=== PATIENT | male | born 1960 | race Caucasian/White ===

== ENCOUNTER 2017-07-27 06:59 | Inpatient (IN) ==
[2017-07-27] MEDS ORDERED: ONDANSETRON 4 MG/2 ML VIAL IV PRN (08:56)
[2017-07-27] MEDS ORDERED: PROMETHAZINE INJ 25 MG in SODIUM CHLORIDE 0.9% 50 ML IV PRN (08:56)
[2017-07-27] MEDS ORDERED: MYLANTA/LIDO VISC 2:1 300 ML BOTTLE SWISH/SWAL PRN (08:56)
[2017-07-27] MEDS ORDERED: ALPRAZolam 0.25 MG TABLET PO PRN (08:56)
[2017-07-27] MEDS ORDERED: TEMAZEPAM 7.5 MG CAPSULE PO PRN (08:56)
[2017-07-27] MEDS ORDERED: guaiFENesin 200 MG/10 ML UDCUP PO PRN (08:56)
[2017-07-27] MEDS ORDERED: diphenhydrAMINE CAP 25 MG CAPSULE PO PRN (08:56)
[2017-07-27] MEDS ORDERED: LOPERAMIDE 2 MG CAPSULE PO PRN ×2 (08:56)
[2017-07-27] MEDS ORDERED: chlorproMAZINE INJ 50 MG in SODIUM CHLORIDE 0.9% 100 ML IV PRN (08:56)
[2017-07-27] MEDS ORDERED: ACETAMINOPHEN 325 MG TABLET PO PRN (08:56)
[2017-07-27] MEDS ORDERED: chlorproMAZINE 25 MG TABLET PO PRN (08:56)
[2017-07-27] MEDS ORDERED: traMADol 50 MG TABLET PO PRN (08:56)
[2017-07-27] MEDS ORDERED: BENZTROPINE 2 MG/2 ML AMP IV PRN (08:56)
[2017-07-27] MEDS ORDERED: MYLANTA/LIDO VISC 2:1 300 ML BOTTLE SWISH/SPIT PRN (08:56)
[2017-07-27] MEDS ORDERED: chlorproMAZINE INJ 25 MG in SODIUM CHLORIDE 0.9% 100 ML IV PRN (08:56)
[2017-07-27] MEDS ORDERED: NICOTINE 14 MG/24 HR PATCH TRANSDERM SCH (09:00)
[2017-07-27] MEDS ORDERED: fentaNYL 50 MCG/HR PATCH TRANSDERM SCH (09:30)
[2017-07-27 09:40] LABS: Basophils # 0.1 10*3/uL (0.0-0.2); Basophils % 0.7 % (0.0-0.8); Eosinophils % 0.1 % (0.00-10.9); Hematocrit 42.7 VOL% (42.0-52.0); Hemoglobin 13.7 GM/DL (14.0-18.0); Immature Granulocytes Absolute 1.33 #; Lymphocytes # 2.7 10*3/uL (1.4-4.0); Lymphocytes % 14.3 % (21.2-54.2); Mean Corpuscular HGB Conc 32.1 GM/DL (32-36); Mean Corpuscular Hemoglobin 29 PG (27-34); Mean Platelet Volume 10.7 FL (9.6-12.0); Monocytes # 1.2 10*3/uL (0.11-0.8); Monocytes % 6.5 % (1.7-12.7); NRBC # 0.06 10*3/uL; Neutrophils # 13.6 10*3/uL (1.4-7.4); Neutrophils % 71.4 % (38.7-73.9); Platelet Count 223 T/CUMM (130-400); Red Blood Count 4.69 MC/CUMM (3.8-5.5); Red Cell Distribution Width 14.6 % (9.3-17.3)
[2017-07-27] MEDS: BENAZEPRIL 10 MG TABLET PO SCH (10:06)
[2017-07-27] MEDS: ATORVASTATIN 40 MG TABLET PO SCH (10:06)
[2017-07-27] MEDS: ESCITALOPRAM 10 MG TABLET PO SCH (10:06)
[2017-07-27] MEDS: amLODIPine 5 MG TABLET PO SCH (10:07)
[2017-07-27] MEDS: GABAPENTIN 100 MG CAPSULE PO SCH ×3 (10:07→20:53)
[2017-07-27 10:10] LABS: Albumin 3.3 G/DL (3.4-5.0); Bilirubin,Total 0.7 MG/DL (0.2-1.0); Calcium 8.6 MG/DL (8.5-10.1); Osmolality,Calculated 277.5 MOS/KG (273-304); Total Protein 6.9 G/DL (6.4-8.3)
[2017-07-27 10:11] LABS: Potassium 4.3 MMOL/L (3.5-5.1)
[2017-07-27] MEDS: ALLOPURINOL 300 MG TABLET PO SCH (10:11)
[2017-07-27] MEDS: ALUMINUM/MAGNES/SIMETH MAX STR 30 ML UDCUP PO PRN (10:12)
[2017-07-27 10:23] LABS: Uric Acid 7.7 MG/DL (3.5-7.2)
[2017-07-27 10:54] LABS: Band Neutrophils 2 % (0-10); Lymphocytes 18 % (20-55); Polychromasia Few; Segmented Neutrophils 78 % (50-85); Total Cells Counted 100
[2017-07-27 10:55] LABS: Platelet Estimate Normal
[2017-07-27] MEDS: DIAZEPAM 5 MG TABLET PO SCH ×4 (13:49→20:54)
[2017-07-27] MEDS: HYDROmorphone 2 MG/1 ML VIAL IV PRN ×2 (15:16→20:50)
[2017-07-27] MEDS: SODIUM BICARB INJ 100 MEQ in DEXTROSE 5% 1,000 ML IV SCH (16:43)
[2017-07-27] MEDS: tiZANidine 4 MG TABLET PO SCH ×3 (16:44→20:54)
[2017-07-27 17:43] LABS: Apearance,Urine CLEAR (Clear); Bilirubin,Urine Negative (Negative); Blood, Urine Negative (Negative); Glucose,Urine (UA) Negative (Negative); Ketones,Urine Negative (Negative); Mucus,Urine Occasional /LPF (Occasional); Nitrite,Urine Negative (Negative); Protein,Urine 30 MG/DL; RBC,Urine 1 /HPF (0-4); Squamous Epithelial Cell,Urine Occasional /HPF (0-10); Urine Color Yellow (Yellow); Urine Specific Gravity 1.023 (1.001-1.035); WBC,Urine 2 /HPF (0-6)
[2017-07-27] MEDS: ZALEPLON 5 MG CAPSULE PO SCH ×2 (20:35→20:54)
[2017-07-28] MEDS: SODIUM BICARB INJ 100 MEQ in DEXTROSE 5% 1,000 ML IV SCH ×3 (00:50→17:55)
[2017-07-28 05:12] LABS: Basophils # 0.2 10*3/uL (0.0-0.2); Basophils % 0.8 % (0.0-0.8); Eosinophils # 0.1 10*3/uL (0.0-0.87); Eosinophils % 0.3 % (0.00-10.9); Hematocrit 41.1 VOL% (42.0-52.0); Hemoglobin 13.1 GM/DL (14.0-18.0); Immature Granulocytes % 7.4 %; Immature Granulocytes Absolute 1.32 #; Lymphocytes # 2.5 10*3/uL (1.4-4.0); Lymphocytes % 14.2 % (21.2-54.2); Mean Corpuscular HGB Conc 31.9 GM/DL (32-36); Mean Corpuscular Hemoglobin 29 PG (27-34); Mean Corpuscular Volume 91.9 FL (87-102); Monocytes # 1.2 10*3/uL (0.11-0.8); Monocytes % 6.6 % (1.7-12.7); NRBC # 0.08 10*3/uL; Neutrophils # 12.6 10*3/uL (1.4-7.4); Neutrophils % 70.7 % (38.7-73.9); Platelet Count 202 T/CUMM (130-400); Red Blood Count 4.47 MC/CUMM (3.8-5.5); Red Cell Distribution Width 14.6 % (9.3-17.3); White Blood Count 17.8 T/CUMM (4-12)
[2017-07-28] MEDS: HYDROmorphone 2 MG/1 ML VIAL IV PRN ×3 (05:31→21:35)
[2017-07-28 05:40] LABS: Bilirubin,Total 1.1 MG/DL (0.2-1.0); Calcium 7.9 MG/DL (8.5-10.1); Osmolality,Calculated 270.1 MOS/KG (273-304); Total Protein 6.5 G/DL (6.4-8.3); Uric Acid 5.8 MG/DL (3.5-7.2)
[2017-07-28 05:46] LABS: Lymphocytes 13 % (20-55); Platelet Estimate Adequate; Segmented Neutrophils 81 % (50-85); Total Cells Counted 100
[2017-07-28 05:47] LABS: Polychromasia Few; Target Cells Slight
[2017-07-28] MEDS: ALUMINUM/MAGNES/SIMETH MAX STR 30 ML UDCUP PO PRN (06:43)
[2017-07-28] MEDS: BENAZEPRIL 10 MG TABLET PO SCH (09:30)
[2017-07-28] MEDS: ALLOPURINOL 300 MG TABLET PO SCH (09:31)
[2017-07-28] MEDS: amLODIPine 5 MG TABLET PO SCH (09:31)
[2017-07-28] MEDS: NICOTINE 21 MG/24 HR PATCH TRANSDERM SCH (09:32)
[2017-07-28] MEDS: ESCITALOPRAM 10 MG TABLET PO SCH (09:38)
[2017-07-28] MEDS: GABAPENTIN 100 MG CAPSULE PO SCH ×2 (09:38→21:37)
[2017-07-28] MEDS: tiZANidine 4 MG TABLET PO SCH ×3 (09:38→21:38)
[2017-07-28] MEDS ORDERED: DIBUCAINE 1% OINT 28 GM TUBE TOP ONE (10:02)
[2017-07-28] MEDS ORDERED: LIDOCAINE 1%/EPI INJ 20 ML VIAL ONE (10:03)
[2017-07-28] MEDS: GRANISETRON 1 MG/1 ML VIAL IV SCH (10:03)
[2017-07-28] MEDS ORDERED: BUPIVACAINE 0.25% 50 ML VIAL ONE (10:03)
[2017-07-28] MEDS: DEXAMETHASONE 10 MG/1 ML VIAL IV SCH (10:04)
[2017-07-28] MEDS: ETOPOSIDE 160 MG in SODIUM CHLORIDE 0.9% 500 ML IV SCH (10:28)
[2017-07-28] MEDS: ATORVASTATIN 40 MG TABLET PO SCH ×2 (11:07→23:14)
[2017-07-28] MEDS: MAGNESIUM HYDROXIDE SUSP 30 ML UDCUP PO PRN (17:58)
[2017-07-28] MEDS: ZALEPLON 5 MG CAPSULE PO SCH (21:38)
[2017-07-29] MEDS: SODIUM BICARB INJ 100 MEQ in DEXTROSE 5% 1,000 ML IV SCH ×2 (02:19→14:27)
[2017-07-29] MEDS: ALUMINUM/MAGNES/SIMETH MAX STR 30 ML UDCUP PO PRN ×3 (03:30→20:04)
[2017-07-29] MEDS: HYDROmorphone 2 MG/1 ML VIAL IV PRN ×3 (03:31→17:27)
[2017-07-29 05:29] LABS: Basophils # 0.1 10*3/uL (0.0-0.2); Basophils % 0.3 % (0.0-0.8); Hematocrit 41.5 VOL% (42.0-52.0); Hemoglobin 13.2 GM/DL (14.0-18.0); Immature Granulocytes % 4.8 %; Lymphocytes % 9.5 % (21.2-54.2); Mean Corpuscular HGB Conc 31.8 GM/DL (32-36); Mean Corpuscular Hemoglobin 30 PG (27-34); Mean Corpuscular Volume 92.8 FL (87-102); Mean Platelet Volume 10.9 FL (9.6-12.0); Monocytes # 1.2 10*3/uL (0.11-0.8); Monocytes % 5.8 % (1.7-12.7); NRBC # 0.04 10*3/uL; Neutrophils # 16.5 10*3/uL (1.4-7.4); Neutrophils % 79.6 % (38.7-73.9); Platelet Count 196 T/CUMM (130-400); Red Blood Count 4.47 MC/CUMM (3.8-5.5); Red Cell Distribution Width 14.5 % (9.3-17.3); White Blood Count 20.7 T/CUMM (4-12)
[2017-07-29 06:07] LABS: Albumin 3.1 G/DL (3.4-5.0); Bilirubin,Total 0.6 MG/DL (0.2-1.0); Calcium 7.7 MG/DL (8.5-10.1); Osmolality,Calculated 266.7 MOS/KG (273-304); Potassium 4.2 MMOL/L (3.5-5.1); Total Protein 6.7 G/DL (6.4-8.3); Uric Acid 5.7 MG/DL (3.5-7.2)
[2017-07-29 06:09] LABS: Band Neutrophils 5 % (0-10); Lymphocytes 12 % (20-55); Platelet Estimate Adequate; Segmented Neutrophils 76 % (50-85); Total Cells Counted 100
[2017-07-29 06:10] LABS: Giant Platelets Few; Hypochromasia 1+
[2017-07-29] MEDS: amLODIPine 5 MG TABLET PO SCH (08:55)
[2017-07-29] MEDS: BENAZEPRIL 10 MG TABLET PO SCH (08:55)
[2017-07-29] MEDS: ALLOPURINOL 300 MG TABLET PO SCH (08:55)
[2017-07-29] MEDS: NICOTINE 21 MG/24 HR PATCH TRANSDERM SCH (08:57)
[2017-07-29] MEDS: ESCITALOPRAM 10 MG TABLET PO SCH (09:01)
[2017-07-29] MEDS: GABAPENTIN 100 MG CAPSULE PO SCH ×2 (09:02→21:05)
[2017-07-29] MEDS: tiZANidine 4 MG TABLET PO SCH ×3 (09:02→21:06)
[2017-07-29] MEDS ORDERED: SODIUM CHLORIDE 0.9% IV ONE (09:30)
[2017-07-29] MEDS ORDERED: CARBOPLATIN IV ONE (09:30)
[2017-07-29] MEDS: DEXAMETHASONE 10 MG/1 ML VIAL IV SCH (09:45)
[2017-07-29] MEDS: GRANISETRON 1 MG/1 ML VIAL IV SCH (09:45)
[2017-07-29] MEDS: ETOPOSIDE 160 MG in SODIUM CHLORIDE 0.9% 500 ML IV SCH (10:31)
[2017-07-29] MEDS: MAGNESIUM HYDROXIDE SUSP 30 ML UDCUP PO PRN (17:34)
[2017-07-29] MEDS: ATORVASTATIN 40 MG TABLET PO SCH (21:05)
[2017-07-29] MEDS: ZALEPLON 5 MG CAPSULE PO SCH (21:05)
[2017-07-30] MEDS: HYDROmorphone 2 MG/1 ML VIAL IV PRN ×4 (01:24→21:23)
[2017-07-30] MEDS: SODIUM BICARB INJ 100 MEQ in DEXTROSE 5% 1,000 ML IV SCH ×2 (01:25→05:46)
[2017-07-30] MEDS: LACTULOSE 20 GM/30 ML UDCUP PO PRN (01:33)
[2017-07-30 04:21] LABS: Basophils % 0.2 % (0.0-0.8); Hematocrit 40.7 VOL% (42.0-52.0); Hemoglobin 12.8 GM/DL (14.0-18.0); Immature Granulocytes % 4.5 %; Lymphocytes # 1.4 10*3/uL (1.4-4.0); Lymphocytes % 7.9 % (21.2-54.2); Mean Corpuscular HGB Conc 31.4 GM/DL (32-36); Mean Corpuscular Hemoglobin 29 PG (27-34); Mean Corpuscular Volume 93.3 FL (87-102); Monocytes # 0.9 10*3/uL (0.11-0.8); Monocytes % 4.9 % (1.7-12.7); NRBC # 0.03 10*3/uL; Neutrophils # 14.7 10*3/uL (1.4-7.4); Neutrophils % 82.5 % (38.7-73.9); Platelet Count 182 T/CUMM (130-400); Red Blood Count 4.36 MC/CUMM (3.8-5.5); Red Cell Distribution Width 14.6 % (9.3-17.3); White Blood Count 17.8 T/CUMM (4-12)
[2017-07-30 05:10] LABS: Bilirubin,Total 0.4 MG/DL (0.2-1.0); Calcium 7.1 MG/DL (8.5-10.1); Osmolality,Calculated 265.5 MOS/KG (273-304); Potassium 4.5 MMOL/L (3.5-5.1); Total Protein 6.3 G/DL (6.4-8.3); Uric Acid 5.1 MG/DL (3.5-7.2)
[2017-07-30 05:37] LABS: Giant Platelets Few; Hypochromasia 1+; Platelet Estimate Normal
[2017-07-30] MEDS ORDERED: fentaNYL 75 MCG/HR PATCH TRANSDERM SCH (09:00)
[2017-07-30] MEDS: ALUMINUM/MAGNES/SIMETH MAX STR 30 ML UDCUP PO PRN (09:17)
[2017-07-30] MEDS: DEXAMETHASONE 10 MG/1 ML VIAL IV SCH (09:18)
[2017-07-30] MEDS: GRANISETRON 1 MG/1 ML VIAL IV SCH (09:18)
[2017-07-30] MEDS: amLODIPine 5 MG TABLET PO SCH (09:20)
[2017-07-30] MEDS: tiZANidine 4 MG TABLET PO SCH ×3 (09:20→23:01)
[2017-07-30] MEDS: ALLOPURINOL 300 MG TABLET PO SCH (09:20)
[2017-07-30] MEDS: NICOTINE 21 MG/24 HR PATCH TRANSDERM SCH (09:20)
[2017-07-30] MEDS: BENAZEPRIL 10 MG TABLET PO SCH (09:20)
[2017-07-30] MEDS: ESCITALOPRAM 10 MG TABLET PO SCH (09:20)
[2017-07-30] MEDS: GABAPENTIN 100 MG CAPSULE PO SCH ×2 (09:20→23:00)
[2017-07-30] MEDS ORDERED: ALUMINUM/MAGNES/SIMETH MAX STR 30 ML UDCUP PO PRN (09:23)
[2017-07-30] MEDS: ETOPOSIDE 160 MG in SODIUM CHLORIDE 0.9% 500 ML IV SCH (11:55)
[2017-07-30] MEDS: ALBUTEROL/IPRATROPIUM 3 ML NEB RESP TX SCH ×2 (14:00→19:25)
[2017-07-30 17:16] LABS: II 29.2 % (30.4-36.4); III 24.4 % (19.2-24.8); IV 13.5 % (9.6-15.6)
[2017-07-30] MEDS: ATORVASTATIN 40 MG TABLET PO SCH (21:23)
[2017-07-30] MEDS: MAGNESIUM HYDROXIDE SUSP 30 ML UDCUP PO PRN (21:33)
[2017-07-30] MEDS: CALCIUM (CARBONATE)/VITAMIN D 600 MG-400 UNIT TABLET PO SCH (23:00)
[2017-07-30] MEDS: ZALEPLON 5 MG CAPSULE PO SCH (23:01)
[2017-07-31] MEDS: ALBUTEROL/IPRATROPIUM 3 ML NEB RESP TX SCH ×4 (00:22→20:31)
[2017-07-31] MEDS: SODIUM BICARB INJ 100 MEQ in DEXTROSE 5% 1,000 ML IV SCH ×2 (04:06→11:16)
[2017-07-31] MEDS: HYDROmorphone 2 MG/1 ML VIAL IV PRN ×2 (05:03→10:07)
[2017-07-31 07:13] LABS: Basophils % 0.1 % (0.0-0.8); Hematocrit 37.8 VOL% (42.0-52.0); Immature Granulocytes % 1.5 %; Immature Granulocytes Absolute 0.22 #; Lymphocytes # 1.6 10*3/uL (1.4-4.0); Lymphocytes % 10.9 % (21.2-54.2); Mean Corpuscular HGB Conc 31.7 GM/DL (32-36); Mean Corpuscular Hemoglobin 30 PG (27-34); Mean Corpuscular Volume 93.3 FL (87-102); Mean Platelet Volume 10.9 FL (9.6-12.0); Monocytes # 0.4 10*3/uL (0.11-0.8); Monocytes % 3.1 % (1.7-12.7); Neutrophils # 12.1 10*3/uL (1.4-7.4); Neutrophils % 84.4 % (38.7-73.9); Platelet Count 181 T/CUMM (130-400); Red Blood Count 4.05 MC/CUMM (3.8-5.5); Red Cell Distribution Width 14.7 % (9.3-17.3); White Blood Count 14.4 T/CUMM (4-12)
[2017-07-31 07:54] LABS: Albumin 2.8 G/DL (3.4-5.0); Bilirubin,Total 0.5 MG/DL (0.2-1.0); Calcium 6.5 MG/DL (8.5-10.1); Osmolality,Calculated 271.4 MOS/KG (273-304); Potassium 4.6 MMOL/L (3.5-5.1); Total Protein 6.1 G/DL (6.4-8.3)
[2017-07-31] MEDS ORDERED: FUROSEMIDE 40 MG/4 ML VIAL IV ONE (10:00)
[2017-07-31] MEDS ORDERED: MORPHINE 4 MG/1 ML VIAL IV PRN (10:02)
[2017-07-31] MEDS: ALUMINUM/MAGNES/SIMETH MAX STR 30 ML UDCUP PO PRN (10:07)
[2017-07-31] MEDS: NICOTINE 21 MG/24 HR PATCH TRANSDERM SCH (10:08)
[2017-07-31] MEDS: BENAZEPRIL 10 MG TABLET PO SCH (10:08)
[2017-07-31] MEDS: ALLOPURINOL 300 MG TABLET PO SCH (10:08)
[2017-07-31] MEDS: amLODIPine 5 MG TABLET PO SCH (10:08)
[2017-07-31] MEDS: CALCIUM (CARBONATE)/VITAMIN D 600 MG-400 UNIT TABLET PO SCH ×2 (10:08→20:42)
[2017-07-31] MEDS: ESCITALOPRAM 10 MG TABLET PO SCH (10:17)
[2017-07-31] MEDS: GABAPENTIN 100 MG CAPSULE PO SCH ×2 (10:17→21:01)
[2017-07-31] MEDS: tiZANidine 4 MG TABLET PO SCH ×3 (10:19→21:02)
[2017-07-31] MEDS ORDERED: CALCIUM GLUCONATE 1,000 MG in SODIUM CHLORIDE 0.9% 100 ML IV ONE (11:00)
[2017-07-31] MEDS: INSULIN REGULAR 100 UNIT/ML SUBCUT SCH ×3 (11:10→20:46)
[2017-07-31] MEDS: HYDROmorphone 2 MG TABLET PO PRN ×3 (11:40→21:37)
[2017-07-31] MEDS ORDERED: fentaNYL 100 MCG/HR PATCH TRANSDERM SCH (16:30)
[2017-07-31] MEDS: LACTULOSE 20 GM/30 ML UDCUP PO PRN (17:16)
[2017-07-31] MEDS ORDERED: SIMETHICONE CHEW 125 MG TABLET PO PRN (19:49)
[2017-07-31] MEDS ORDERED: SIMETHICONE CHEW 125 MG TABLET PO SCH (20:00)
[2017-07-31] MEDS: ATORVASTATIN 40 MG TABLET PO SCH (20:42)
[2017-07-31] MEDS: ZALEPLON 5 MG CAPSULE PO SCH (21:01)
[2017-08-01] MEDS: ALBUTEROL/IPRATROPIUM 3 ML NEB RESP TX SCH ×2 (01:26→07:09)
[2017-08-01] MEDS: HYDROmorphone 2 MG TABLET PO PRN ×3 (01:31→09:46)
[2017-08-01 04:14] VITALS: BP 117/58
[2017-08-01 05:12] LABS: Basophils % 0.2 % (0.0-0.8); Hematocrit 38.5 VOL% (42.0-52.0); Hemoglobin 12.4 GM/DL (14.0-18.0); Immature Granulocytes % 0.7 %; Immature Granulocytes Absolute 0.09 #; Lymphocytes # 1.9 10*3/uL (1.4-4.0); Lymphocytes % 14.3 % (21.2-54.2); Mean Corpuscular HGB Conc 32.2 GM/DL (32-36); Mean Corpuscular Hemoglobin 30 PG (27-34); Mean Corpuscular Volume 91.4 FL (87-102); Mean Platelet Volume 10.8 FL (9.6-12.0); Monocytes # 0.3 10*3/uL (0.11-0.8); Monocytes % 2.1 % (1.7-12.7); Neutrophils # 10.7 10*3/uL (1.4-7.4); Neutrophils % 82.7 % (38.7-73.9); Platelet Count 161 T/CUMM (130-400); Red Blood Count 4.21 MC/CUMM (3.8-5.5); Red Cell Distribution Width 14.6 % (9.3-17.3); White Blood Count 12.9 T/CUMM (4-12)
[2017-08-01 05:53] LABS: Bilirubin,Total 0.7 MG/DL (0.2-1.0); Calcium 7.9 MG/DL (8.5-10.1); Osmolality,Calculated 260.1 MOS/KG (273-304); Potassium 5.3 MMOL/L (3.5-5.1); Total Protein 6.3 G/DL (6.4-8.3); Uric Acid 6.2 MG/DL (3.5-7.2)
[2017-08-01] MEDS: INSULIN REGULAR 100 UNIT/ML SUBCUT SCH (09:33)
[2017-08-01] MEDS: tiZANidine 4 MG TABLET PO SCH (09:34)
[2017-08-01] MEDS: ESCITALOPRAM 10 MG TABLET PO SCH (09:35)
[2017-08-01] MEDS: ALLOPURINOL 300 MG TABLET PO SCH (09:39)
[2017-08-01] MEDS: BENAZEPRIL 10 MG TABLET PO SCH (09:39)
[2017-08-01] MEDS: CALCIUM (CARBONATE)/VITAMIN D 600 MG-400 UNIT TABLET PO SCH (09:39)
[2017-08-01] MEDS: NICOTINE 21 MG/24 HR PATCH TRANSDERM SCH (09:40)
[2017-08-01] MEDS: amLODIPine 5 MG TABLET PO SCH (09:40)
[2017-08-01] MEDS: GABAPENTIN 100 MG CAPSULE PO SCH (09:47)
== END 2017-08-01 11:25 | disposition home or self-care (01) | DRG 847 ==
LOC: N.4E 06:59
PROVIDERS: ADMIT Specialist; ATTEND Specialist

== ENCOUNTER 2017-09-11 00:36 | Inpatient (IN) ==
[2017-09-11] MEDS ORDERED: ROCURONIUM 100 MG/10 ML VIAL IV ONE ×2 (00:54→01:10)
[2017-09-11] MEDS ORDERED: ETOMIDATE 20 MG/10 ML VIAL IV ONE ×2 (00:54→01:10)
[2017-09-11] MEDS ORDERED: SODIUM CHLORIDE 0.9% 1,000 ML IV STA (01:08)
[2017-09-11] MEDS ORDERED: VANCOMYCIN INJ 1,000 MG in SODIUM CHLORIDE 0.9% 250 ML IV STA (01:29)
[2017-09-11] MEDS ORDERED: CEFEPIME 2,000 MG in SODIUM CHLORIDE 0.9% 100 ML IV STA (01:29)
[2017-09-11 01:37] LABS: Basophils % 0.2 % (0.0-0.8); Eosinophils % 0.1 % (0.00-10.9); Hematocrit 36.1 VOL% (42.0-52.0); Hemoglobin 11.5 GM/DL (14.0-18.0); Immature Granulocytes % 2.6 %; Immature Granulocytes Absolute 0.37 #; Lymphocytes # 1.8 10*3/uL (1.4-4.0); Lymphocytes % 12.4 % (21.2-54.2); Mean Corpuscular HGB Conc 31.9 GM/DL (32-36); Mean Corpuscular Hemoglobin 29 PG (27-34); Mean Corpuscular Volume 92.3 FL (87-102); Mean Platelet Volume 9.7 FL (9.6-12.0); Monocytes # 0.3 10*3/uL (0.11-0.8); Monocytes % 2.4 % (1.7-12.7); NRBC # 0.02 10*3/uL; Neutrophils # 11.9 10*3/uL (1.4-7.4); Neutrophils % 82.3 % (38.7-73.9); Platelet Count 233 T/CUMM (130-400); Red Blood Count 3.91 MC/CUMM (3.8-5.5); Red Cell Distribution Width 17.1 % (9.3-17.3); White Blood Count 14.5 T/CUMM (4-12)
[2017-09-11] MEDS: PROPOFOL 1,000 MG/100 ML BOTTLE IV SCH ×4 (01:45→17:28)
[2017-09-11 01:46] LABS: Albumin 3.2 G/DL (3.4-5.0); Bilirubin,Total 0.4 MG/DL (0.2-1.0); Calcium 8.2 MG/DL (8.5-10.1); Osmolality,Calculated 269.5 MOS/KG (273-304); Potassium 4.3 MMOL/L (3.5-5.1); Total Protein 7.6 G/DL (6.4-8.3)
[2017-09-11 01:56] LABS: ABG Base Excess 0.6 MMOL/L (-2.5-2.5); ABG Oxygen Saturation 99.9 % (95-100); ABG PCO2 41.9 MM HG (35-48); ABG PH 7.394 (7.35-7.45); ABG TCO2 22.9 MMOL/L (23-27)
[2017-09-11] MEDS ORDERED: SODIUM CHLORIDE 0.9% 2,000 ML IV STA (02:41)
[2017-09-11 02:48] LABS: Apearance,Urine CLEAR (Clear); Bilirubin,Urine Negative (Negative); Blood, Urine Small mg/dL (Negative); Glucose,Urine (UA) Negative (Negative); Hyaline Casts,Urine 3 /LPF (0-3); Ketones,Urine Negative (Negative); Nitrite,Urine Negative (Negative); Protein,Urine Negative; RBC,Urine 2 /HPF (0-4); Squamous Epithelial Cell,Urine Occasional /HPF (0-10); Urine Color Straw (Yellow); Urine Specific Gravity 1.005 (1.001-1.035); Urine Urobilinogen < 2.0 EU/DL (0.2-1.0); WBC,Urine 2 /HPF (0-6)
[2017-09-11] MEDS ORDERED: ACETAMINOPHEN 325 MG TABLET PO PRN (03:27)
[2017-09-11] MEDS ORDERED: ONDANSETRON 4 MG/2 ML VIAL IV PRN (03:27)
[2017-09-11] MEDS ORDERED: ALBUTEROL 2.5 MG/3 ML NEB RESP TX PRN (03:27)
[2017-09-11] MEDS: fentaNYL INJ 1,250 MCG in SODIUM CHLORIDE 0.9% 225 ML IV PRN ×4 (04:25→17:28)
[2017-09-11 05:12] LABS: ABG Base Excess -0.5 MMOL/L (-2.5-2.5); ABG Oxygen Saturation 97.7 % (95-100); ABG PCO2 55.2 MM HG (35-48); ABG PH 7.295 (7.35-7.45); ABG TCO2 24.6 MMOL/L (23-27)
[2017-09-11] MEDS: PANTOPRAZOLE 40 MG VIAL IV SCH (06:11)
[2017-09-11] MEDS: SODIUM CHLORIDE 0.9% 1,000 ML IV SCH ×3 (06:13→22:03)
[2017-09-11] MEDS: ALBUTEROL/IPRATROPIUM 3 ML NEB RESP TX SCH ×3 (07:05→19:15)
[2017-09-11] MEDS ORDERED: FUROSEMIDE 40 MG/4 ML VIAL IV SCH (08:00)
[2017-09-11] MEDS: BENAZEPRIL 10 MG TABLET PO SCH (08:16)
[2017-09-11] MEDS: amLODIPine 5 MG TABLET PO SCH (08:16)
[2017-09-11] MEDS: ENOXAPARIN 40 MG/0.4 ML SYRINGE SUBCUT SCH (08:17)
[2017-09-11] MEDS: GABAPENTIN 100 MG CAPSULE PO SCH ×2 (08:17→20:50)
[2017-09-11] MEDS: methylPREDNISolone SOD SUC 40 MG/1 ML VIAL IV SCH ×3 (08:17→22:37)
[2017-09-11] MEDS: CEFEPIME 1,000 MG in SYRINGE 1 EACH IV SCH ×2 (08:18→17:06)
[2017-09-11] MEDS ORDERED: GLUCAGON 1 MG VIAL IM PRN (09:59)
[2017-09-11] MEDS ORDERED: DEXTROSE 50% 25 GM/50 ML VIAL IV PRN (09:59)
[2017-09-11 10:22] LABS: Basophils % 0.2 % (0.0-0.8); Eosinophils % 0.2 % (0.00-10.9); Immature Granulocytes % 1.4 %; Immature Granulocytes Absolute 0.15 #
[2017-09-11 10:29] LABS: Hematocrit 29.5 VOL% (42.0-52.0); Lymphocytes # 1.5 10*3/uL (1.4-4.0); Lymphocytes % 13.1 % (21.2-54.2); Mean Corpuscular HGB Conc 31.9 GM/DL (32-36); Mean Corpuscular Hemoglobin 30 PG (27-34); Mean Corpuscular Volume 92.5 FL (87-102); Mean Platelet Volume 9.8 FL (9.6-12.0); Monocytes # 0.2 10*3/uL (0.11-0.8); Neutrophils # 9.2 10*3/uL (1.4-7.4); Neutrophils % 83.1 % (38.7-73.9); Platelet Count 168 T/CUMM (130-400); Red Blood Count 3.19 MC/CUMM (3.8-5.5); Red Cell Distribution Width 17.1 % (9.3-17.3); White Blood Count 11.1 T/CUMM (4-12)
[2017-09-11 10:30] LABS: Hemoglobin 9.4 GM/DL (14.0-18.0); PT Patient Result 10.3 SECS
[2017-09-11 10:40] LABS: Hypochromasia 1+; Platelet Estimate Adequate
[2017-09-11 10:50] LABS: Alanine Aminotransferase 44 U/L (16-61); Albumin 2.5 G/DL (3.4-5.0); Alkaline Phosphatase 282 U/L (45-117); Aspartate Amino Transferase 67 U/L (0-37); Bilirubin,Total < 0.39 MG/DL (0.2-1.0); Blood Urea Nitrogen 17 MG/DL (7-18); Calcium 7.2 MG/DL (8.5-10.1); Glucose 92 MG/DL (74-106); Osmolality,Calculated 274.8 MOS/KG (273-304); Potassium 4.3 MMOL/L (3.5-5.1); Sodium 137 MMOL/L (136-145)
[2017-09-11] MEDS: VANCOMYCIN INJ 1,250 MG in SODIUM CHLORIDE 0.9% 250 ML IV SCH (15:29)
[2017-09-11] MEDS: fentaNYL INJ 2,500 MCG in SODIUM CHLORIDE 0.9% 450 ML IV PRN (21:47)
[2017-09-12] MEDS: ALBUTEROL/IPRATROPIUM 3 ML NEB RESP TX SCH ×4 (00:06→19:01)
[2017-09-12] MEDS: CEFEPIME 1,000 MG in SYRINGE 1 EACH IV SCH ×3 (01:05→17:40)
[2017-09-12] MEDS: PROPOFOL 1,000 MG/100 ML BOTTLE IV SCH ×6 (01:10→23:39)
[2017-09-12] MEDS: PANTOPRAZOLE 40 MG VIAL IV SCH (03:40)
[2017-09-12] MEDS: VANCOMYCIN INJ 1,250 MG in SODIUM CHLORIDE 0.9% 250 ML IV SCH ×2 (03:45→16:05)
[2017-09-12 04:32] LABS: ABG Base Excess -1.6 MMOL/L (-2.5-2.5); ABG HCO3 23.9 MMOL/L (20-26); ABG Oxygen Saturation 97.9 % (95-100); ABG PCO2 43.6 MM HG (35-48); ABG PH 7.356 (7.35-7.45); ABG PO2 120.8 MM HG (80-95); ABG TCO2 25.2 MMOL/L (23-27); Allen Test Positive; Pt O2 Delivery Device Ventilator
[2017-09-12 05:28] LABS: Basophils % 0.1 % (0.0-0.8); Hemoglobin 8.7 GM/DL (14.0-18.0); Immature Granulocytes Absolute 0.18 #; Lymphocytes # 0.8 10*3/uL (1.4-4.0); Lymphocytes % 8.7 % (21.2-54.2); Mean Corpuscular HGB Conc 31.1 GM/DL (32-36); Mean Corpuscular Hemoglobin 30 PG (27-34); Mean Corpuscular Volume 94.9 FL (87-102); Mean Platelet Volume 9.9 FL (9.6-12.0); Monocytes # 0.1 10*3/uL (0.11-0.8); Monocytes % 1.1 % (1.7-12.7); NRBC # 0.02 10*3/uL; Neutrophils # 7.9 10*3/uL (1.4-7.4); Neutrophils % 88.1 % (38.7-73.9); Platelet Count 154 T/CUMM (130-400); Red Blood Count 2.95 MC/CUMM (3.8-5.5); Red Cell Distribution Width 17.2 % (9.3-17.3)
[2017-09-12] MEDS: SODIUM CHLORIDE 0.9% 1,000 ML IV SCH ×3 (06:00→23:22)
[2017-09-12] MEDS: fentaNYL INJ 2,500 MCG in SODIUM CHLORIDE 0.9% 450 ML IV PRN ×3 (06:00→20:30)
[2017-09-12 06:08] LABS: Osmolality,Calculated 276.7 MOS/KG (273-304); Potassium 4.6 MMOL/L (3.5-5.1)
[2017-09-12] MEDS: methylPREDNISolone SOD SUC 40 MG/1 ML VIAL IV SCH ×3 (07:00→23:05)
[2017-09-12] MEDS: PHENYLEPHRINE DRIP 40 MG/250 ML PREMIX IV PRN (07:32)
[2017-09-12] MEDS: GABAPENTIN 100 MG CAPSULE PO SCH ×2 (09:28→21:40)
[2017-09-12] MEDS: amLODIPine 5 MG TABLET PO SCH (09:28)
[2017-09-12] MEDS: ENOXAPARIN 40 MG/0.4 ML SYRINGE SUBCUT SCH (09:28)
[2017-09-12] MEDS: BENAZEPRIL 10 MG TABLET PO SCH (09:28)
[2017-09-13] MEDS: ALBUTEROL/IPRATROPIUM 3 ML NEB RESP TX SCH ×4 (00:32→18:58)
[2017-09-13] MEDS: CEFEPIME 1,000 MG in SYRINGE 1 EACH IV SCH ×3 (00:50→17:37)
[2017-09-13] MEDS: PROPOFOL 1,000 MG/100 ML BOTTLE IV SCH ×7 (03:22→22:57)
[2017-09-13] MEDS: fentaNYL INJ 2,500 MCG in SODIUM CHLORIDE 0.9% 450 ML IV PRN ×4 (03:45→20:41)
[2017-09-13] MEDS: PANTOPRAZOLE 40 MG VIAL IV SCH (04:00)
[2017-09-13] MEDS: VANCOMYCIN INJ 1,250 MG in SODIUM CHLORIDE 0.9% 250 ML IV SCH ×2 (04:15→15:13)
[2017-09-13] MEDS: SODIUM CHLORIDE 0.9% 1,000 ML IV SCH ×2 (04:38→10:44)
[2017-09-13 05:27] LABS: Basophils % 0.1 % (0.0-0.8); Hemoglobin 9.6 GM/DL (14.0-18.0); Immature Granulocytes % 1.7 %; Immature Granulocytes Absolute 0.18 #; Lymphocytes # 0.9 10*3/uL (1.4-4.0); Mean Corpuscular Hemoglobin 30 PG (27-34); Mean Corpuscular Volume 95.4 FL (87-102); Mean Platelet Volume 10.2 FL (9.6-12.0); Monocytes # 0.2 10*3/uL (0.11-0.8); Monocytes % 1.7 % (1.7-12.7); NRBC # 0.02 10*3/uL; Neutrophils # 9.4 10*3/uL (1.4-7.4); Neutrophils % 88.5 % (38.7-73.9); Platelet Count 205 T/CUMM (130-400); Red Blood Count 3.25 MC/CUMM (3.8-5.5); Red Cell Distribution Width 17.7 % (9.3-17.3); White Blood Count 10.6 T/CUMM (4-12)
[2017-09-13 05:43] LABS: Calcium 7.2 MG/DL (8.5-10.1); Osmolality,Calculated 278.7 MOS/KG (273-304); Potassium 4.9 MMOL/L (3.5-5.1)
[2017-09-13] MEDS: methylPREDNISolone SOD SUC 40 MG/1 ML VIAL IV SCH ×3 (06:25→22:56)
[2017-09-13] MEDS ORDERED: FUROSEMIDE 40 MG/4 ML VIAL IV ONE (08:17)
[2017-09-13] MEDS: ENOXAPARIN 40 MG/0.4 ML SYRINGE SUBCUT SCH (08:42)
[2017-09-13] MEDS: GABAPENTIN 100 MG CAPSULE PO SCH ×2 (08:42→20:52)
[2017-09-13] MEDS: amLODIPine 5 MG TABLET PO SCH (08:49)
[2017-09-13] MEDS: BENAZEPRIL 10 MG TABLET PO SCH (08:49)
[2017-09-13] MEDS: PHENYLEPHRINE DRIP 40 MG/250 ML PREMIX IV PRN (19:47)
[2017-09-14] MEDS: ALBUTEROL/IPRATROPIUM 3 ML NEB RESP TX SCH ×4 (00:31→19:11)
[2017-09-14] MEDS: fentaNYL INJ 2,500 MCG in SODIUM CHLORIDE 0.9% 450 ML IV PRN ×5 (00:46→21:01)
[2017-09-14] MEDS: CEFEPIME 1,000 MG in SYRINGE 1 EACH IV SCH ×3 (02:07→18:26)
[2017-09-14] MEDS: PROPOFOL 1,000 MG/100 ML BOTTLE IV SCH ×7 (02:08→22:51)
[2017-09-14 03:38] LABS: ABG Base Excess -2.9 MMOL/L (-2.5-2.5); ABG Oxygen Saturation 98.8 % (95-100); ABG PCO2 41.5 MM HG (35-48); ABG PH 7.344 (7.35-7.45); ABG TCO2 20.8 MMOL/L (23-27)
[2017-09-14] MEDS: PANTOPRAZOLE 40 MG VIAL IV SCH (04:54)
[2017-09-14] MEDS: VANCOMYCIN INJ 1,250 MG in SODIUM CHLORIDE 0.9% 250 ML IV SCH ×2 (04:54→15:15)
[2017-09-14] MEDS: methylPREDNISolone SOD SUC 40 MG/1 ML VIAL IV SCH ×3 (06:01→22:48)
[2017-09-14] MEDS: SODIUM CHLORIDE 0.9% 1,000 ML IV SCH ×2 (08:31→09:12)
[2017-09-14] MEDS: amLODIPine 5 MG TABLET PO SCH (09:57)
[2017-09-14] MEDS: GABAPENTIN 100 MG CAPSULE PO SCH ×2 (09:58→21:42)
[2017-09-14] MEDS: BENAZEPRIL 10 MG TABLET PO SCH (09:58)
[2017-09-14] MEDS: ENOXAPARIN 40 MG/0.4 ML SYRINGE SUBCUT SCH (09:58)
[2017-09-15] MEDS: CEFEPIME 1,000 MG in SYRINGE 1 EACH IV SCH ×3 (00:49→18:00)
[2017-09-15] MEDS: fentaNYL INJ 2,500 MCG in SODIUM CHLORIDE 0.9% 450 ML IV PRN ×6 (01:02→21:30)
[2017-09-15] MEDS: ALBUTEROL/IPRATROPIUM 3 ML NEB RESP TX SCH ×4 (01:22→20:41)
[2017-09-15] MEDS: PROPOFOL 1,000 MG/100 ML BOTTLE IV SCH ×7 (02:41→21:31)
[2017-09-15] MEDS: VANCOMYCIN INJ 1,250 MG in SODIUM CHLORIDE 0.9% 250 ML IV SCH ×2 (03:34→16:36)
[2017-09-15] MEDS: PANTOPRAZOLE 40 MG VIAL IV SCH (03:36)
[2017-09-15 04:30] LABS: ABG Base Excess -3.3 MMOL/L (-2.5-2.5); ABG HCO3 21.7 MMOL/L (20-26); ABG Oxygen Saturation 99.2 % (95-100); ABG PCO2 39.2 MM HG (35-48); ABG PH 7.355 (7.35-7.45); ABG TCO2 19.9 MMOL/L (23-27); Allen Test Positive; Pt O2 Delivery Device Ventilator
[2017-09-15 05:51] LABS: Basophils % 0.2 % (0.0-0.8); Hematocrit 30.3 VOL% (42.0-52.0); Hemoglobin 9.2 GM/DL (14.0-18.0); Immature Granulocytes % 4.6 %; Immature Granulocytes Absolute 0.45 #; Lymphocytes # 1.2 10*3/uL (1.4-4.0); Mean Corpuscular HGB Conc 30.4 GM/DL (32-36); Mean Corpuscular Hemoglobin 29 PG (27-34); Mean Corpuscular Volume 96.8 FL (87-102); Mean Platelet Volume 10.2 FL (9.6-12.0); Monocytes # 0.4 10*3/uL (0.11-0.8); Monocytes % 4.1 % (1.7-12.7); NRBC # 0.05 10*3/uL; Neutrophils # 7.8 10*3/uL (1.4-7.4); Neutrophils % 79.1 % (38.7-73.9); Platelet Count 195 T/CUMM (130-400); Red Blood Count 3.13 MC/CUMM (3.8-5.5); Red Cell Distribution Width 18.1 % (9.3-17.3); White Blood Count 9.8 T/CUMM (4-12)
[2017-09-15 06:21] LABS: Calcium 7.1 MG/DL (8.5-10.1); Free T4 (Free Thyroxine) 0.69 NG/DL (0.76-1.46); Osmolality,Calculated 283.3 MOS/KG (273-304); Potassium 4.6 MMOL/L (3.5-5.1)
[2017-09-15] MEDS: methylPREDNISolone SOD SUC 40 MG/1 ML VIAL IV SCH ×3 (06:29→23:16)
[2017-09-15] MEDS ORDERED: FUROSEMIDE 40 MG/4 ML VIAL IV ONE (07:58)
[2017-09-15] MEDS: GABAPENTIN 100 MG CAPSULE PO SCH ×2 (08:06→21:28)
[2017-09-15] MEDS: ENOXAPARIN 40 MG/0.4 ML SYRINGE SUBCUT SCH (08:06)
[2017-09-15] MEDS: QUEtiapine 25 MG TABLET PO SCH ×2 (08:08→21:28)
[2017-09-15] MEDS: BENAZEPRIL 10 MG TABLET PO SCH (08:33)
[2017-09-15] MEDS: amLODIPine 5 MG TABLET PO SCH (08:34)
[2017-09-15] MEDS: SODIUM CHLORIDE 0.9% 1,000 ML IV SCH (08:48)
[2017-09-15] MEDS: PHENYLEPHRINE DRIP 40 MG/250 ML PREMIX IV PRN (15:01)
[2017-09-16] MEDS: PROPOFOL 1,000 MG/100 ML BOTTLE IV SCH ×6 (00:45→17:03)
[2017-09-16] MEDS: CEFEPIME 1,000 MG in SYRINGE 1 EACH IV SCH ×3 (00:49→17:09)
[2017-09-16] MEDS: ALBUTEROL/IPRATROPIUM 3 ML NEB RESP TX SCH ×3 (00:57→14:32)
[2017-09-16] MEDS: fentaNYL INJ 2,500 MCG in SODIUM CHLORIDE 0.9% 450 ML IV PRN ×5 (01:24→16:57)
[2017-09-16] MEDS: VANCOMYCIN INJ 1,250 MG in SODIUM CHLORIDE 0.9% 250 ML IV SCH ×2 (03:02→16:40)
[2017-09-16] MEDS: PANTOPRAZOLE 40 MG VIAL IV SCH (03:09)
[2017-09-16 04:35] LABS: Allen Test Positive; Pt O2 Delivery Device Ventilator
[2017-09-16 04:42] LABS: ABG Base Excess -2.3 MMOL/L (-2.5-2.5); ABG HCO3 22.5 MMOL/L (20-26); ABG Oxygen Saturation 99.1 % (95-100); ABG PCO2 41.5 MM HG (35-48); ABG PH 7.353 (7.35-7.45); ABG TCO2 21.2 MMOL/L (23-27)
[2017-09-16 05:43] LABS: Basophils % 0.2 % (0.0-0.8); Hematocrit 30.3 VOL% (42.0-52.0); Hemoglobin 9.4 GM/DL (14.0-18.0); Immature Granulocytes % 2.6 %; Immature Granulocytes Absolute 0.21 #; Lymphocytes # 1.1 10*3/uL (1.4-4.0); Mean Corpuscular Hemoglobin 30 PG (27-34); Mean Corpuscular Volume 95.3 FL (87-102); Mean Platelet Volume 10.2 FL (9.6-12.0); Monocytes # 0.4 10*3/uL (0.11-0.8); Monocytes % 4.7 % (1.7-12.7); NRBC # 0.05 10*3/uL; Neutrophils # 6.4 10*3/uL (1.4-7.4); Neutrophils % 79.5 % (38.7-73.9); Platelet Count 158 T/CUMM (130-400); Red Blood Count 3.18 MC/CUMM (3.8-5.5); Red Cell Distribution Width 18.2 % (9.3-17.3); White Blood Count 8.1 T/CUMM (4-12)
[2017-09-16 06:25] LABS: Albumin 2.2 G/DL (3.4-5.0); Calcium 7.3 MG/DL (8.5-10.1); Potassium 4.4 MMOL/L (3.5-5.1); Total Protein 5.5 G/DL (6.4-8.3)
[2017-09-16 06:31] LABS: Band Neutrophils 3 % (0-10); Hypochromasia Slight; Lymphocytes 11 % (20-55); Myelocytes 1 %; Ovalocytes Slight; Platelet Estimate Normal; Segmented Neutrophils 78 % (50-85); Total Cells Counted 100
[2017-09-16] MEDS ORDERED: FUROSEMIDE 40 MG/4 ML VIAL IV ONE (07:25)
[2017-09-16] MEDS: methylPREDNISolone SOD SUC 40 MG/1 ML VIAL IV SCH ×2 (07:35→16:39)
[2017-09-16] MEDS: SODIUM CHLORIDE 0.9% 1,000 ML IV SCH (09:07)
[2017-09-16] MEDS: ENOXAPARIN 40 MG/0.4 ML SYRINGE SUBCUT SCH (09:47)
[2017-09-16] MEDS: BENAZEPRIL 10 MG TABLET PO SCH (09:49)
[2017-09-16] MEDS: QUEtiapine 25 MG TABLET PO SCH (09:49)
[2017-09-16] MEDS: amLODIPine 5 MG TABLET PO SCH (09:49)
[2017-09-16] MEDS: GABAPENTIN 100 MG CAPSULE PO SCH (09:49)
[2017-09-16 19:29] VITALS: BP 89/57
== END 2017-09-16 18:24 | disposition expired | DRG 870 ==
LOC: EDBD → EDUNIT# → N.ED 00:36 → N.EDINP 03:27 → SUATTDRO 03:27 → N.ICU 04:20
PROVIDERS: ADMIT Internal Medicine; ATTEND Internal Medicine